=== PATIENT | female | born 1955 | race Caucasian/White ===

== ENCOUNTER → 2018-10-14 | Outpatient (CLI) | payer OTHER ==
[~2018-10-14] MED LIST: CEPH500 PO; CYCL10 PO; HYDCHL12.5 PO; HYDCHL25 PO; Hydrocodone-Ap1 EA23 PO; LOSARTAN POTASS25 MG PO; Percocet 5-3251 EACH PO
== END | disposition home or self-care (01) ==
LOC: PLD 10:12 → LAB SHORT 10:12
DX: D48.5 Neoplasm of uncertain behavior of skin (principal)
CPT/HCPCS: 88305

== ENCOUNTER → 2021-02-22 | Outpatient (CLI) | payer MEDICARE | END | disposition home or self-care (01) | LOC: LAB 11:29 → LAB SHORT 11:29 | DX: D48.5 Neoplasm of uncertain behavior of skin (principal) | CPT/HCPCS: 88305 ==